=== PATIENT | male | born 1950 | race Caucasian/White ===

== ENCOUNTER → 2025-04-08 15:48 | Outpatient (CLI) | payer MEDICARE, MEDICAID, SELFPAY ==
[2025-04-08 16:02] LABS: Add Manual Diff / Slide Review NO; Hematocrit 41.1 % (41-53); Hemoglobin 14.0 g/dL (13.5-17.5); Lymphocytes Absolute Auto 1800 /uL (1100-4500); Mean Corpuscular HGB Conc 34.1 % (30-36); Mean Corpuscular Hemoglobin 31.8 PG (26-34); Mean Corpuscular Volume 93.4 fL (80-100); Platelet Count 200 X10^3/uL (150-400)
== END ==
PROVIDERS: PCP Internal Medicine; Referring Provider Internal Medicine; Visit Provider Internal Medicine
DX: R06.02 Shortness of breath (principal); J44.89 Other specified chronic obstructive pulmonary disease
CPT/HCPCS: 36415; 82785; 85025